=== PATIENT | female | born 1965 | race Caucasian/White ===

== ENCOUNTER → 2016-12-21 | Outpatient (CLI) | payer BC ==
--- NOTE | 2016-12-21 10:37 | WWHP ---
[facility] - HISTORY AND PHYSICAL DATE OF SERVICE: 12/21/2016 CHIEF COMPLAINT: The patient is here for her routine gynecologic exam and mammogram. HPI: This is a 51-year-old, G2, P2, with an LMP of 2009. She previously saw Dr. Winston for her gynecologic care and last was seen for this in 2012. She is without gynecologic complaints and denies any postmenopausal bleeding. PAST MEDICAL HISTORY: Asthma and right breast lobular CIS in 2005, which did not require any adjuvant treatment. MEDICATIONS: 1. Tudorza inhaler 1 puff b.i.d. 2. Ventolin inhaler 2 puffs q.i.d. ALLERGIES: SULFA which caused hives. PAST SURGICAL HISTORY: Right breast biopsy 2005 and laparoscopic cholecystectomy in the past. PAST OB HISTORY: Two vaginal deliveries. PAST GLOBAL RECRUITER HISTORY: She has been menopausal since 2009 and has no history of STDs. SOCIAL HISTORY: She admits to smoking 1 pack of cigarettes per day and has about 2 alcoholic drinks per month. She denies drug use. She has been since 2010. 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 FAMILY HISTORY: Father and brother had diabetes. Mother had an ID, COPD and CHF. Maternal aunt had breast cancer. REVIEW OF SYSTEMS: She has lost about 14 pounds over the last 3 years and she does believe she is eating less. She denies respiratory, cardiac or GI problems. PHYSICAL EXAM: Blood pressure 126/84, height 5 feet 3 inches, weight 136 pounds, temperature 97.1, pulse 77. This is a well-developed, well-nourished, white female, who is alert and oriented x3, in no acute distress. HEENT is within normal limits. NECK: Supple without mass or thyromegaly. CHEST AND LUNGS: Clear to auscultation. HEART: Regular rate and rhythm. BREASTS: There is a slight defect at the inferior aspect of the right breast consistent with previous breast biopsy. There are no palpable masses or nipple discharge. Axillary exam is negative for adenopathy. Back negative for CVA tenderness. ABDOMEN: Soft, nontender, without palpable masses. PELVIC EXAM: External genitalia reveals mild atrophy without lesions. Cervix and vagina reveals mild atrophy. The cervix is multiparous. There is no evidence of prolapse. The uterus is mid position, nongravid size and nontender. There are no palpable adnexal masses or tenderness. Rectovaginal exam is negative for mass or tenderness and is negative for occult blood. EXTREMITIES: Nontender. IMPRESSION: 1. A 51-year-old menopausal female with normal gynecologic exam. 2. History of right breast CIS in 2005 with no evidence of recurrence. PLAN: 1. The Pap smear was performed. 2. Self breast examination was discussed. 3. Diagnostic mammogram will be done today. 4. Osteoporosis prevention was discussed. 5. I have recommended screening colonoscopy based on her age and she states she will do this through Dr. Duenas. 6. She will return in 1 year end. MMODL / IJN: [id number] /
--- NOTE | 2016-12-21 10:53 | MM ---
Reason for exam: additional evaluation requested from prior study. Last mammogram was performed 2 years and 5 months ago. History: Patient is postmenopausal, has history of breast cancer at age 39, and has history of high-risk lesion on a previous biopsy at age 39. Family history of premenopausal breast cancer in maternal aunt at age 50. Benign US left CoreBiopsy of both breasts, March 24, 2007. High risk right mammotome panel of the right breast, May 03, 2005. Took hormonal contraceptives for 3 years beginning at age 17. Physical Findings: Nurse did not find any significant physical abnormalities on exam. MG Diagnostic Mammo w CAD ORACIO Bilateral CC and MLO view(s) were taken. Prior study comparison: July 09, 2014, bilateral MG diagnostic mammo w CAD ORACIO. September 05, 2012, CAD bilateral diagnostic mammogram. The breast tissue is heterogeneously dense. This may lower the sensitivity of mammography. Finding: There is a vague increasing high density, indistinct irregular mass in the outer quadrant, middle position of the left breast seen on CC view. New finding since July 09, 2014 and September 05, 2012. These results were verbally communicated with the patient and result sheet given to the patient on 12/21/16. ASSESSMENT: Incomplete: need additional imaging evaluation, BI-RAD 0 RECOMMENDATION: Ultrasound of the left breast.
--- NOTE | 2016-12-21 10:54 | USB ---
Reason for exam: additional evaluation requested from abnormal screening. History: Patient is postmenopausal, has history of breast cancer at age 39, and has history of high-risk lesion on a previous biopsy at age 39. Family history of premenopausal breast cancer in maternal aunt at age 50. Benign US left CoreBiopsy of both breasts, March 24, 2007. High risk right mammotome panel of the right breast, May 03, 2005. Took hormonal contraceptives for 3 years beginning at age 17. US Breast Limited LT Left breast ultrasound demonstrates no cystic or solid lesion seen. These results were verbally communicated with the patient and result sheet given to the patient on 12/21/16. ASSESSMENT: Negative, BI-RAD 1 RECOMMENDATION: Follow-up diagnostic mammogram of the left breast in 6 months.
== END | disposition home or self-care (01) ==
LOC: WWCWWP 08:34
PROVIDERS: ATTEND Obstetrics & Gynecology
DX: Z08 Encounter for follow-up examination after completed treatment for malignant neoplasm (principal); Z85.3 Personal history of malignant neoplasm of breast; R92.8 Other abnormal and inconclusive findings on diagnostic imaging of breast
CPT/HCPCS: 76642; G0204

== ENCOUNTER 2018-04-03 16:28 | Emergency (ER) | payer BC ==
[2018-04-03 17:13] LABS: Basophils % (A) 1 %; Eosinophils # (A) 0.2 k/uL (0-0.7); Eosinophils % (A) 3 %; HCT 47.5 % (34.0-46.0); HGB 15.9 gm/dL (11.4-16.0); Lymphocytes # (A) 2.7 k/uL (1.0-4.8); Lymphocytes % (A) 45 %; MCH 30.7 pg (25.0-35.0); MCHC 33.5 g/dL (31.0-37.0); MCV 91.8 fL (80.0-100.0); Mean Platelet Volume 7.4; Monocytes # (A) 0.3 k/uL (0-1.0); Monocytes % (A) 4 %; Neutrophils # (A) 2.7 k/uL (1.3-7.7); Neutrophils % (A) 44 %; Platelet Count 222 k/uL (150-450); RBC 5.17 m/uL (3.80-5.40); RDW 13.2 % (11.5-15.5)
[2018-04-03] MEDS ORDERED: IPRATROPIUM-ALBUTEROL 3 ML NEB INHALATION STA (17:28)
[2018-04-03 17:29] LABS: Creatine Kinase 60 U/L (30-135)
[2018-04-03] MEDS ORDERED: methylPREDNISolone SOD SUCCI 125 MG/2 ML VIAL IV STA (17:29)
[2018-04-03] MEDS ORDERED: FAMOTIDINE 20 MG/2 ML VIAL IV STA (17:29)
[2018-04-03] MEDS ORDERED: diphenhydrAMINE 50 MG/ML 1 ML VIAL IVP STA (17:29)
[2018-04-03 17:31] LABS: ALT 33 U/L (9-52); AST 34 U/L (14-36); Albumin 4.2 g/dL (3.5-5.0); Alkaline Phosphatase 87 U/L (38-126); Anion Gap 6 mmol/L; Blood Urea Nitrogen 8 mg/dL (7-17); Calcium 9.3 mg/dL (8.4-10.2); Carbon Dioxide 26 mmol/L (22-30); Chloride 106 mmol/L (98-107); Glucose 120 mg/dL (74-99); Potassium 4.3 mmol/L (3.5-5.1); Sodium 138 mmol/L (137-145); Total Bilirubin 0.5 mg/dL (0.2-1.3)
--- NOTE | 2018-04-03 17:33 | ED ---
General Adult HPI - General Chief complaint: Shortness of Breath Stated complaint: Sob Time Seen by Provider: 04/03/18 16:56 Source: patient, family, RN notes reviewed Mode of arrival: ambulatory Limitations: no limitations - History of Present Illness Initial comments: Patient is a pleasant 52-year-old female presenting to the emergency Department with complaints of rash and difficulty breathing. Onset of symptoms was around 4:00. Patient states she noticed the rash and then noticed some swelling, mostly in her hands however her arms as well. No history of similar symptoms previously. Patient also feels short of breath and has noticed some wheezing. Patient is a smoker. No new exposure to cosmetics or food or medication. No history of similar symptoms previously. Patient did return from a plane ride just a few days ago. Patient states rash is not painful or pruritic. No fevers. - Related Data Home Medications Medication Instructions Recorded Confirmed Albuterol Inhaler [Ventolin Hfa 2 puff INHALATION RT-QID 04/03/18 04/03/18 Inhaler] Cephalexin [Keflex] 500 mg PO TID 04/03/18 04/03/18 Cold Medication (Unknown) 2 tab PO BID 04/03/18 Fluticasone/Umeclidin/Vilanter 1 puff INHALATION RT-DAILY 04/03/18 04/03/18 [Trelegy Ellipta 100-62.5-25] Ibuprofen [Advil] 600 mg PO DAILY 04/03/18 04/03/18 Previous Rx's Medication Instructions Recorded Albuterol Inhaler [Ventolin Hfa 2 puff INHALATION Q4HR PRN #1 04/03/18 Inhaler] inhaler predniSONE 20 mg PO BID #10 tab 04/03/18 Allergies Allergy/AdvReac Type Severity Reaction Status Date / Time Sulfa (Sulfonamide Allergy Rash/Hives Verified 04/03/18 17:18 Antibiotics) Review of Systems ROS Statement: Those systems with pertinent positive or pertinent negative responses have been documented in the HPI. ROS Other: All systems not noted in ROS Statement are negative. Constitutional: Denies: fever Eyes: Denies: eye pain ENT: Denies: ear pain Respiratory: Reports: dyspnea. Denies: cough Cardiovascular: Denies: chest pain Endocrine: Denies: fatigue Gastrointestinal: Denies: abdominal pain Genitourinary: Denies: dysuria Musculoskeletal: Denies: back pain Skin: Reports: rash Neurological: Denies: weakness Past Medical History Past Medical History: No Reported History History of Any Multi-Drug Resistant Organisms: None Reported Past Surgical History: Cholecystectomy Past Psychological History: No Psychological Hx Reported Smoking Status: Current every day smoker Past Alcohol Use History: None Reported Past Drug Use History: None Reported General Exam Limitations: no limitations General appearance: alert, in no apparent distress Head exam: Present: atraumatic Eye exam: Present: normal appearance, PERRL, EOMI ENT exam: Present: normal oropharynx Neck exam: Present: normal inspection Respiratory exam: Present: wheezes Cardiovascular Exam: Present: regular rate, normal rhythm Expanded Peripheral pulses: 2+: Radial (R), Radial (L), Dorsalis Pedis (R), Dorsalis Pedis (L) GI/Abdominal exam: Present: soft. Absent: tenderness Extremities exam: Present: normal inspection. Absent: pedal edema, calf tenderness Back exam: Present: normal inspection Neurological exam: Present: alert Psychiatric exam: Present: normal affect, normal mood Skin exam: Present: rash (Patient does have diffuse rash mostly involving her arms and back. This is erythematous with rare urticarial appearance.) Course Vital Signs 04/03/18 04/03/18 04/03/18 16:36 17:38 17:47 Temperature 97.6 F Pulse Rate 117 H 110 H 110 H Respiratory 24 Rate Blood Pressure 157/83 O2 Sat by Pulse 93 L Oximetry EKG Findings - EKG Comments: EKG Findings:: Normal sinus rhythm at 90. AR 124. QRS 84. QT 378. QTC 462. Right axis. Normal QRS. No acute ST change. Medical Decision Making - Medical Decision Making Patient reevaluated and feeling much better. Patient denies any dyspnea at this time. Rash has resolved. Lung sounds still with some mild wheezing. Patient is comfortable with discharge home. Patient and family updated on results and need for follow-up. - Lab Data Result diagrams: 04/03/18 17:01 04/03/18 17:01 Lab Results 04/03/18 04/03/18 04/03/18 Range/Units 17:01 17:01 17:01 WBC 6.0 (3.8-10.6) k/uL RBC 5.17 (3.80-5.40) m/uL Hgb 15.9 (11.4-16.0) gm/dL Hct 47.5 H (34.0-46.0) % MCV 91.8 (80.0-100.0) fL MCH 30.7 (25.0-35.0) pg MCHC 33.5 (31.0-37.0) g/dL RDW 13.2 (11.5-15.5) % Plt Count 222 (150-450) k/uL Neutrophils % 44 % Lymphocytes % 45 % Monocytes % 4 % Eosinophils % 3 % Basophils % 1 % Neutrophils # 2.7 (1.3-7.7) k/uL Lymphocytes # 2.7 (1.0-4.8) k/uL Monocytes # 0.3 (0-1.0) k/uL Eosinophils # 0.2 (0-0.7) k/uL Basophils # 0.0 (0-0.2) k/uL Sodium 138 (137-145) mmol/L Potassium 4.3 (3.5-5.1) mmol/L Chloride 106 (98-107) mmol/L Carbon Dioxide 26 (22-30) mmol/L Anion Gap 6 mmol/L BUN 8 (7-17) mg/dL Creatinine 0.61 (0.52-1.04) mg/dL Est GFR (CKD-EPI)AfAm >90 (>60 ml/min/1.73 sqM) Est GFR (CKD-EPI)NonAf >90 (>60 ml/min/1.73 sqM) Glucose 120 H (74-99) mg/dL Calcium 9.3 (8.4-10.2) mg/dL Total Bilirubin 0.5 (0.2-1.3) mg/dL AST 34 (14-36) U/L ALT 33 (9-52) U/L Alkaline Phosphatase 87 (38-126) U/L Total Creatine Kinase 60 (30-135) U/L CK-MB (CK-2) 0.8 (0.0-2.4) ng/mL CK-MB (CK-2) Rel Index 1.3 Troponin I <0.012 (0.000-0.034) ng/mL Total Protein 7.0 (6.3-8.2) g/dL Albumin 4.2 (3.5-5.0) g/dL - Radiology Data Radiology results: report reviewed (Computed tomography scan of the chest negative for pulmonary embolism. Changes are consistent with COPD.) Disposition Clinical Impression: Bronchospasm Disposition: HOME SELF-CARE Condition: Stable Instructions: Allergies (ED), COPD (Chronic Obstructive Pulmonary Disease) (ED) Additional Instructions: Continue [id number] antihistamine such as Benadryl or Claritin for the next 5 days. Please follow-up with primary care physician in the next couple days for recheck. Return for difficulty breathing, increased rash, swelling of the face or tongue or throat, worsening symptoms or other concerns. Prescriptions: Albuterol Inhaler [Ventolin Hfa Inhaler] 2 puff INHALATION Q4HR PRN #1 inhaler PRN Reason: Dyspnea predniSONE 20 mg PO BID #10 tab Is patient prescribed a controlled substance at d/c from ED?: No Referrals: Jw Duenas MD [Primary Care Provider] - 1-2 days Time of Disposition: 19:12
[2018-04-03 17:41] LABS: Troponin I <0.012 ng/mL (0.000-0.034)
[2018-04-03 17:47] LABS: Creatine Kinase MB 0.8 ng/mL (0.0-2.4)
--- NOTE | 2018-04-03 18:30 | CT ---
EXAMINATION TYPE: CT angio chest DATE OF EXAM: 04/03/2018 COMPARISON: Chest x-ray April 06, 2013. HISTORY: Shortness of breath rule out pulmonary embolism CT DLP: 20.7 mGycm. Automated Exposure Control for Dose Reduction was Utilized. CONTRAST: CTA scan of the thorax is performed with IV Contrast, patient injected with 100 mL of Isovue 370, pul monary embolism protocol. MIP Images are created on CT scanner and reviewed. FINDINGS: LUNGS: Moderate underlying emphysematous change is present most prominent in lung apices. No suspicio us consolidation or groundglass opacity is seen. No pleural effusion or pneumothorax is noted. No con cerning parenchymal nodules or masses are identified. MEDIASTINUM: There is satisfactory enhancement of the pulmonary artery and its branches, there is no CT evidence for pulmonary embolism. There is abnormal confluent soft tissue density subcarinal regio n extending into bilateral hilar regions could reflect confluent adenopathy as there is loss of mary l low dense fat. No cardiomegaly or pericardial effusion is seen. OTHER: Cholecystectomy clips are noted. Mild to moderate multilevel spurring in the mid to lower thor acic spine is seen. IMPRESSION: 1. No CT evidence for acute pulmonary embolism. 2. Moderate underlying emphysematous change without acute pulmonary process.
[2018-04-03 19:19] VITALS: BP 134/77; PULSE 94; RESP 20; TEMP 98
== END 2018-04-03 19:19 | disposition home or self-care (01) ==
LOC: EC 16:28
DX: J98.01 Acute bronchospasm (principal); R21 Rash and other nonspecific skin eruption; F17.200 Nicotine dependence, unspecified, uncomplicated; Z79.1 Long term (current) use of non-steroidal anti-inflammatories (NSAID); Z79.899 Other long term (current) drug therapy; Z79.51 Long term (current) use of inhaled steroids; Z88.2 Allergy status to sulfonamides
CPT/HCPCS: 36415; 94640; 93005; 80053; 82550; 82553; 84484; 85025; 71275; 99285; 96374; 96375 ×2; J1200; J2930; Q9967

== ENCOUNTER 2018-04-19 15:14 | Emergency (ER) | payer BC ==
[2018-04-19] MEDS ORDERED: methylPREDNISolone SOD SUCCI 125 MG/2 ML VIAL IV STA (15:56)
[2018-04-19] MEDS ORDERED: FAMOTIDINE 20 MG/2 ML VIAL IV STA (15:56)
--- NOTE | 2018-04-19 17:13 | ED ---
Allergic Reaction HPI - General Chief complaint: Allergic Reaction Stated complaint: Poss allergic reaction-sob, swollen Time Seen by Provider: 04/19/18 15:45 Source: patient, RN notes reviewed, old records reviewed Mode of arrival: ambulatory Limitations: no limitations - History of Present Illness Initial Comments: This is a 52-year-old female the ER for evaluation of swelling and itching. Patient did take antibiotic today, Keflex for sore throat. Patient denies any shortness of breath, no wheezing no feelings of tongue swelling. No significant rash noted. Patient has had prior ALLERGIC reaction which this feels similar MD Complaint: allergic reaction -: minutes(s) Exposure: medication (Keflex) Symptoms: rash, itching, facial swelling, lip swelling Severity: mild Treatment Prior to Arrival: benadryl - Related Data Home Medications Medication Instructions Recorded Confirmed Albuterol Inhaler [Ventolin Hfa 2 puff INHALATION RT-QID 04/03/18 04/19/18 Inhaler] Fluticasone/Umeclidin/Vilanter 1 puff INHALATION RT-DAILY 04/03/18 04/19/18 [Trelegy Ellipta 100-62.5-25] Previous Rx's Medication Instructions Recorded Famotidine [Pepcid] 20 mg PO BID #28 tablet 04/19/18 predniSONE 50 mg PO DAILY #5 tab 04/19/18 Allergies Allergy/AdvReac Type Severity Reaction Status Date / Time cephalexin [From Keflex] Allergy Anaphylaxis Verified 04/19/18 17:06 Sulfa (Sulfonamide Allergy Rash/Hives Verified 04/19/18 17:06 Antibiotics) Review of Systems ROS Statement: Those systems with pertinent positive or pertinent negative responses have been documented in the HPI. ROS Other: All systems not noted in ROS Statement are negative. Past Medical History Past Medical History: No Reported History History of Any Multi-Drug Resistant Organisms: None Reported Past Surgical History: Cholecystectomy Past Psychological History: No Psychological Hx Reported Smoking Status: Current every day smoker Past Alcohol Use History: None Reported Past Drug Use History: None Reported General Exam Limitations: no limitations General appearance: alert, in no apparent distress Head exam: Present: atraumatic, normocephalic, normal inspection Eye exam: Present: normal appearance, PERRL, EOMI. Absent: scleral icterus, conjunctival injection, periorbital swelling ENT exam: Present: normal exam, mucous membranes moist Neck exam: Present: normal inspection. Absent: tenderness, meningismus, lymphadenopathy Respiratory exam: Present: normal lung sounds bilaterally. Absent: respiratory distress, wheezes, rales, rhonchi, stridor Cardiovascular Exam: Present: regular rate, normal rhythm, normal heart sounds. Absent: systolic murmur, diastolic murmur, rubs, gallop, clicks GI/Abdominal exam: Present: soft, normal bowel sounds. Absent: distended, tenderness, guarding, rebound, rigid Extremities exam: Present: normal inspection, full ROM, normal capillary refill. Absent: tenderness, pedal edema, joint swelling, calf tenderness Back exam: Present: normal inspection Neurological exam: Present: alert, oriented X3, CN II-XII intact Psychiatric exam: Present: normal affect, normal mood Skin exam: Present: warm, dry, intact, normal color. Absent: rash Course Vital Signs 04/19/18 04/19/18 04/19/18 15:16 15:52 17:02 Temperature 97.4 F L Pulse Rate 135 H 87 Respiratory 18 20 16 Rate Blood Pressure 164/70 116/73 O2 Sat by Pulse 94 L 95 Oximetry 04/19/18 17:34 Temperature 98.4 F Pulse Rate 94 Respiratory 18 Rate Blood Pressure 115/74 O2 Sat by Pulse 95 Oximetry Medical Decision Making - Medical Decision Making 52 female the ER with ALLERGIC reaction, patient encouraged to discontinue Keflex, treated on an outpatient basis with antihistamines, steroids. Patient' s in no acute distress no stridor, vital signs are normal and stable Disposition Clinical Impression: Allergic reaction, Adverse reaction to drug Disposition: HOME SELF-CARE Condition: Good Instructions (If sedation given, give patient instructions): Anaphylaxis (ED) Prescriptions: Famotidine [Pepcid] 20 mg PO BID #28 tablet predniSONE 50 mg PO DAILY #5 tab Is patient prescribed a controlled substance at d/c from ED?: No Referrals: Jw Duenas MD [Primary Care Provider] - 1-2 days
[2018-04-19 17:35] VITALS: BP 115/74; PULSE 94; RESP 18; TEMP 98.4
== END 2018-04-19 17:34 | disposition home or self-care (01) ==
LOC: EC 15:14
DX: L29.9 Pruritus, unspecified (principal); R22.0 Localized swelling, mass and lump, head; R21 Rash and other nonspecific skin eruption; T36.1X5A Adverse effect of cephalosporins and other beta-lactam antibiotics, initial encounter; F17.200 Nicotine dependence, unspecified, uncomplicated; Z79.51 Long term (current) use of inhaled steroids; Z79.899 Other long term (current) drug therapy; Z88.1 Allergy status to other antibiotic agents; Z88.2 Allergy status to sulfonamides
CPT/HCPCS: 99284; 96374; 96375; J2930

== ENCOUNTER 2018-07-20 07:27 | Observation (INO) | payer BC ==
[2018-07-20] MEDS ORDERED: methylPREDNISolone SOD SUCCI 125 MG/2 ML VIAL IV STA (07:41)
[2018-07-20] MEDS ORDERED: IPRATROPIUM-ALBUTEROL 3 ML NEB INHALATION STA (07:41)
[2018-07-20] MEDS ORDERED: SODIUM CHLORIDE 0.9% 500 ML 500 ML IV STA (07:41)
--- NOTE | 2018-07-20 07:46 | ED ---
SOB HPI - General Source: patient, RN notes reviewed Mode of arrival: ambulatory Limitations: no limitations <Perez Brunson - Last Filed: 07/20/18 09:26> <Jeovany Weinstein - Last Filed: 07/20/18 09:36> - General Chief Complaint: Shortness of Breath Stated Complaint: SOB Time Seen by Provider: 07/20/18 07:34 - History of Present Illness Initial Comments: This a 52-year-old female presents emergency Department with chief complaint shortness of breath. Patient states started on Tuesday. Patient has been on antibiotics and steroids for last few days and did receive IM steroids yesterday at PCPs office. She's had no improvement she states she feels worse today. She does have underlying COPD and which she uses inhalers at home. She reports no fevers or chills. She has had mild URI symptoms. Sick contacts include her . Patient denies any current chest pain, leg swelling, nausea vomiting diarrhea constipation. (Perez Brunson) - Related Data Home Medications Medication Instructions Recorded Confirmed Albuterol Inhaler [Ventolin Hfa 2 puff INHALATION RT-QID 04/03/18 07/20/18 Inhaler] Fluticasone/Umeclidin/Vilanter 1 puff INHALATION RT-DAILY 04/03/18 07/20/18 [Trelegy Ellipta 100-62.5-25] Levofloxacin [Levaquin] 500 mg PO DAILY 07/20/18 07/20/18 methylPREDNISolone Dose Pack See Taper PO DIRECTED 07/20/18 07/20/18 [Medrol Dose Pack] Allergies Allergy/AdvReac Type Severity Reaction Status Date / Time cephalexin [From Keflex] Allergy Anaphylaxis Verified 07/20/18 08:42 Sulfa (Sulfonamide Allergy Rash/Hives Verified 07/20/18 08:42 Antibiotics) Review of Systems ROS Other: All systems not noted in ROS Statement are negative. <Perez Brunson - Last Filed: 07/20/18 09:26> ROS Other: All systems not noted in ROS Statement are negative. <Jeovany Weinstein - Last Filed: 07/20/18 09:36> ROS Statement: Those systems with pertinent positive or pertinent negative responses have been documented in the HPI. Past Medical History Past Medical History: COPD History of Any Multi-Drug Resistant Organisms: None Reported Past Surgical History: Cholecystectomy Past Psychological History: No Psychological Hx Reported Smoking Status: Current every day smoker Past Alcohol Use History: None Reported Past Drug Use History: None Reported <Peerz Brunson - Last Filed: 07/20/18 09:26> General Exam Limitations: no limitations General appearance: alert, in no apparent distress Head exam: Present: atraumatic, normocephalic, normal inspection Eye exam: Present: normal appearance, PERRL, EOMI. Absent: scleral icterus, conjunctival injection, periorbital swelling ENT exam: Present: normal exam, normal oropharynx, mucous membranes moist, TM's normal bilaterally Neck exam: Present: normal inspection. Absent: tenderness, meningismus, lymphadenopathy Respiratory exam: Present: wheezes, decreased breath sounds. Absent: normal lung sounds bilaterally, respiratory distress, rales, rhonchi, stridor Cardiovascular Exam: Present: normal rhythm, tachycardia, normal heart sounds. Absent: systolic murmur, diastolic murmur, rubs, gallop, clicks GI/Abdominal exam: Present: soft, normal bowel sounds. Absent: distended, tenderness, guarding, rebound, rigid Neurological exam: Present: alert, oriented X3 Skin exam: Present: warm, dry, intact, normal color. Absent: rash <Perez Brunson - Last Filed: 07/20/18 09:26> Course Vital Signs 07/20/18 07/20/18 07/20/18 07:29 07:50 08:07 Temperature 97.5 F L Pulse Rate 102 H 80 80 Respiratory 20 Rate Blood Pressure 175/102 O2 Sat by Pulse 93 L Oximetry 07/20/18 08:51 Temperature Pulse Rate 78 Respiratory 24 Rate Blood Pressure 168/89 O2 Sat by Pulse 97 Oximetry Medical Decision Making - Lab Data Result diagrams: 07/20/18 07:55 07/20/18 07:55 <Perez Brunson - Last Filed: 07/20/18 09:26> - Lab Data Result diagrams: 07/20/18 07:55 07/20/18 07:55 <Jeovany Weinstein - Last Filed: 07/20/18 09:36> - Medical Decision Making 52-year-old female sent for cough congestion chest x-ray reviewed no acute abnormality. Laboratory unremarkable. Patient be admitted for fell outpatient COPD exacerbation. Patient will be admitted on IV Solu-Medrol every 6 hours. (Perez Brunson) Case was discussed with practitioner breezy, chart and results reviewed. Case was also discussed with Dr. Teague, who will admit covering for Dr. Yonis galeano. (Jeovany Weinstein) - Lab Data Lab Results 07/20/18 07/20/18 07/20/18 Range/Units 07:55 07:55 07:55 WBC 6.9 (3.8-10.6) k/uL RBC 5.06 (3.80-5.40) m/uL Hgb 15.4 (11.4-16.0) gm/dL Hct 46.8 H (34.0-46.0) % MCV 92.5 (80.0-100.0) fL MCH 30.4 (25.0-35.0) pg MCHC 32.9 (31.0-37.0) g/dL RDW 13.5 (11.5-15.5) % Plt Count 211 (150-450) k/uL Neutrophils % 60 % Lymphocytes % 27 % Monocytes % 8 % Eosinophils % 1 % Basophils % 0 % Neutrophils # 4.2 (1.3-7.7) k/uL Lymphocytes # 1.9 (1.0-4.8) k/uL Monocytes # 0.5 (0-1.0) k/uL Eosinophils # 0.1 (0-0.7) k/uL Basophils # 0.0 (0-0.2) k/uL Sodium 138 (137-145) mmol/L Potassium 4.1 (3.5-5.1) mmol/L Chloride 104 (98-107) mmol/L Carbon Dioxide 23 (22-30) mmol/L Anion Gap 11 mmol/L BUN 9 (7-17) mg/dL Creatinine 0.63 (0.52-1.04) mg/dL Est GFR (CKD-EPI)AfAm >90 (>60 ml/min/1.73 sqM) Est GFR (CKD-EPI)NonAf >90 (>60 ml/min/1.73 sqM) Glucose 98 (74-99) mg/dL Calcium 9.3 (8.4-10.2) mg/dL Magnesium 1.7 (1.6-2.3) mg/dL Total Bilirubin 0.4 (0.2-1.3) mg/dL AST 31 (14-36) U/L ALT 32 (9-52) U/L Alkaline Phosphatase 73 (38-126) U/L Troponin I (0.000-0.034) ng/mL NT-Pro-B Natriuret Pep 89 pg/mL Total Protein 7.0 (6.3-8.2) g/dL Albumin 4.3 (3.5-5.0) g/dL 07/20/18 Range/Units 07:55 WBC (3.8-10.6) k/uL RBC (3.80-5.40) m/uL Hgb (11.4-16.0) gm/dL Hct (34.0-46.0) % MCV (80.0-100.0) fL MCH (25.0-35.0) pg MCHC (31.0-37.0) g/dL RDW (11.5-15.5) % Plt Count (150-450) k/uL Neutrophils % % Lymphocytes % % Monocytes % % Eosinophils % % Basophils % % Neutrophils # (1.3-7.7) k/uL Lymphocytes # (1.0-4.8) k/uL Monocytes # (0-1.0) k/uL Eosinophils # (0-0.7) k/uL Basophils # (0-0.2) k/uL Sodium (137-145) mmol/L Potassium (3.5-5.1) mmol/L Chloride (98-107) mmol/L Carbon Dioxide (22-30) mmol/L Anion Gap mmol/L BUN (7-17) mg/dL Creatinine (0.52-1.04) mg/dL Est GFR (CKD-EPI)AfAm (>60 ml/min/1.73 sqM) Est GFR (CKD-EPI)NonAf (>60 ml/min/1.73 sqM) Glucose (74-99) mg/dL Calcium (8.4-10.2) mg/dL Magnesium (1.6-2.3) mg/dL Total Bilirubin (0.2-1.3) mg/dL AST (14-36) U/L ALT (9-52) U/L Alkaline Phosphatase (38-126) U/L Troponin I <0.012 (0.000-0.034) ng/mL NT-Pro-B Natriuret Pep pg/mL Total Protein (6.3-8.2) g/dL Albumin (3.5-5.0) g/dL Disposition <Perez Brunson - Last Filed: 07/20/18 09:26> <Jeovany Weinstein - Last Filed: 07/20/18 09:36> Clinical Impression: COPD exacerbation, Failure of outpatient treatment Disposition: ADMITTED IP TO THIS HOSP Condition: Stable Referrals: Jw Duenas MD [Primary Care Provider] - 1-2 days
[2018-07-20 08:23] LABS: Basophils % (A) 0 %; Eosinophils # (A) 0.1 k/uL (0-0.7); Eosinophils % (A) 1 %; HCT 46.8 % (34.0-46.0); HGB 15.4 gm/dL (11.4-16.0); Lymphocytes # (A) 1.9 k/uL (1.0-4.8); Lymphocytes % (A) 27 %; MCH 30.4 pg (25.0-35.0); MCHC 32.9 g/dL (31.0-37.0); MCV 92.5 fL (80.0-100.0); Mean Platelet Volume 7.6; Monocytes # (A) 0.5 k/uL (0-1.0); Monocytes % (A) 8 %; Neutrophils # (A) 4.2 k/uL (1.3-7.7); Neutrophils % (A) 60 %; Platelet Count 211 k/uL (150-450); RBC 5.06 m/uL (3.80-5.40); RDW 13.5 % (11.5-15.5); WBC 6.9 k/uL (3.8-10.6)
[2018-07-20 08:33] LABS: ALT 32 U/L (9-52); AST 31 U/L (14-36); Albumin 4.3 g/dL (3.5-5.0); Alkaline Phosphatase 73 U/L (38-126); Anion Gap 11 mmol/L; Blood Urea Nitrogen 9 mg/dL (7-17); Calcium 9.3 mg/dL (8.4-10.2); Carbon Dioxide 23 mmol/L (22-30); Chloride 104 mmol/L (98-107); Glucose 98 mg/dL (74-99); Magnesium 1.7 mg/dL (1.6-2.3); Potassium 4.1 mmol/L (3.5-5.1); Sodium 138 mmol/L (137-145); Total Bilirubin 0.4 mg/dL (0.2-1.3)
--- NOTE | 2018-07-20 08:49 | XR ---
EXAMINATION TYPE: XR chest 2V DATE OF EXAM: 07/20/2018 COMPARISON: Prior chest x-ray 04/06/2013 HISTORY: Difficulty breathing TECHNIQUE: Frontal and lateral views of the chest are obtained. FINDINGS: Hyperinflation suggests underlying COPD. There are overlying cardiac leads and the patient is rotated. There is no focal air space opacity, pleural effusion, or pneumothorax seen. The cardia c silhouette size is stable. There is eventration of the right hemidiaphragm. Surgical clips in the upper abdomen. The osseous structures are intact. IMPRESSION: No acute cardiopulmonary process.
--- NOTE | 2018-07-20 11:35 | P.HPIM ---
History of Present Illness This is a pleasant 52 years old female with past medical history of pneumonia, bronchitis,. She is a patient of Dr. Mobley . Patient states that her has the flu/comment called for about 2 weeks, and about 5 days ago she started having her respiratory symptoms mainly of shortness of breath. However patient denies chest pain or coughing. She first treated herself with uxom-mcc-aizreyn stuff and then went to see her PCP who prescribed her steroids and antibiotics. With no improvement she gets one extra shot of steroids and then came to emergency room neck a for worsening dyspnea. Patient denies change in urine or bowel habits. However she had generalized weakness. Also she had generalized myalgia and arthralgia earlier during the week which is resolved now. Patient denies history of COPD. However she says that she had asthma about 10 years ago. She is currently smoking about 10 cigarettes per day. No alcohol or illicit tracts On admission patient is afebrile, rest of Vitas looks stable, she is saturating 94% on 2 L. CBC and BMP were unremarkable. Liver enzymes not elevated. Troponin is negative. Chest x-ray showing no acute pulmonary process. EKG: Normal sinus rhythm at 82 Review of Systems CONSTITUTIONAL: No fever, no malaise, no fatigue. HEENT: No recent visual problems or hearing problems. Denied any sore throat. CARDIOVASCULAR: No orthopnea, PND, no palpitations, no syncope. PULMONARY: No shortness of breath, no cough, no hemoptysis. GASTROINTESTINAL: No diarrhea, no nausea, no vomiting, no abdominal pain. Normoactive bowel sounds. NEUROLOGICAL: No headaches, no weakness, no numbness. HEMATOLOGICAL: Denies any bleeding or petechiae. GENITOURINARY: Denies any burning micturition, frequency, or urgency. MUSCULOSKELETAL/RHEUMATOLOGICAL: Denies any joint pain, swelling, or any muscle pain. ENDOCRINE: Denies any polyuria or polydipsia. Past Medical History Past Medical History: Pneumonia Additional Past Medical History / Comment(s): Bronchitis, seasonal allergies, sinus problems, UTI. History of Any Multi-Drug Resistant Organisms: None Reported Past Surgical History: Breast Surgery, Cholecystectomy Additional Past Surgical History / Comment(s): L breast benign bx. Past Anesthesia/Blood Transfusion Reactions: No Reported Reaction, Motion Sickness Smoking Status: Current every day smoker - Past Family History Father Family Medical History: CVA/TIA Additional Family Medical History / Comment(s): Father for a CVA at the age of 46yrs. Mother Family Medical History: COPD Additional Family Medical History / Comment(s): Mother had heart "issues". She from COPD at the age of 72 yrs. She was a smoker. Medications and Allergies Home Medications Medication Instructions Recorded Confirmed Type Albuterol Inhaler [Ventolin Hfa 2 puff INHALATION RT-QID 04/03/18 07/20/18 History Inhaler] Fluticasone/Umeclidin/Vilanter 1 puff INHALATION RT-DAILY 04/03/18 07/20/18 History [Trelegy Ellipta 100-62.5-25] Levofloxacin [Levaquin] 500 mg PO DAILY 07/20/18 07/20/18 History methylPREDNISolone Dose Pack See Taper PO DIRECTED 07/20/18 07/20/18 History [Medrol Dose Pack] Allergies Allergy/AdvReac Type Severity Reaction Status Date / Time cephalexin [From Keflex] Allergy Anaphylaxis Verified 07/20/18 08:42 Sulfa (Sulfonamide Allergy Rash/Hives Verified 07/20/18 08:42 Antibiotics) Physical Exam Vitals: Vital Signs Temp Pulse Pulse Resp BP BP Pulse Ox 07/20/18 10:58 97.4 F L 71 20 150/82 94 L 07/20/18 10:00 97.7 F 112 H 24 157/79 96 07/20/18 08:51 78 24 168/89 97 07/20/18 08:07 80 07/20/18 07:50 80 07/20/18 07:29 97.5 F L 102 H 20 175/102 93 L Intake and Output 07/19/18 07/20/18 07/20/18 22:59 06:59 14:59 Other: Weight 57.606 kg GENERAL: The patient is alert and oriented x3, not in any acute distress. Well developed, well nourished. HEENT: Pupils are round and equally reacting to light. EOMI. No scleral icterus. No conjunctival pallor. Normocephalic, atraumatic. No pharyngeal erythema. No thyromegaly. CARDIOVASCULAR: S1 and S2 present. No murmurs, rubs, or gallops. PULMONARY: Chest is clear to auscultation, no wheezing or crackles. ABDOMEN: Soft, nontender, nondistended, normoactive bowel sounds. No palpable organomegaly. MUSCULOSKELETAL: No joint swelling or deformity. EXTREMITIES: No cyanosis, clubbing, or pedal edema. NEUROLOGICAL: Gross neurological examination did not reveal any focal deficits. SKIN: No rashes. Results CBC & Chem 7: 07/20/18 07:55 07/20/18 07:55 Labs: Abnormal Lab Results - Last 24 Hours (Table) 07/20/18 Range/Units 07:55 Hct 46.8 H (34.0-46.0) % Thrombosis Risk Factor Assmnt - Choose All That Apply Any of the Below Risk Factors Present?: Yes Each Factor Represents 1 point: Abnormal pulmonary function (COPD), Age 41-60 years Other Risk Factors: No Other congenital or acquired thrombophilia - If yes, enter type in comment: No Thrombosis Risk Factor Assessment Total Risk Factor Score: 2 Thrombosis Risk Factor Assessment Level: Low Risk Assessment and Plan Assessment: Possible upper respiratory viral infection versus acute tracheobronchitis. Rule out influenza Nicotine dependence Remote history of asthma Plan: This is a pleasant 52 years old female who presents with dyspnea. Chest x-ray was negative. We'll check for influenza. Continue with present treatment and oxygen therapy as needed. pulmonary consult. Labs and medication were reviewed.. Continue same treatment. Continue with symptomatic treatment. Resume home medication. Monitor lytes and vitals. DVT and GI prophylaxis. Further recommendations of the clinical course of the patient DVT prophylaxis: Subcutaneous heparin GI Prophylaxis: Pepcid
[2018-07-20 11:47] LABS: Glucose,Whole Blood 137 mg/dL (75-99)
[2018-07-20] MEDS: IPRATROPIUM-ALBUTEROL 3 ML NEB INHALATION PRN ×3 (12:21→19:58)
[2018-07-20] MEDS: methylPREDNISolone SOD SUCCI 125 MG/2 ML VIAL IV SCH ×3 (12:21→23:18)
[2018-07-20] MEDS: INSULIN ASPART (NovoLOG) 100 UNIT/ML VIAL SQ SCH ×3 (12:24→20:49)
--- NOTE | 2018-07-20 14:28 | P.DS ---
Providers Date of admission: 07/20/18 09:27 Attending physician: Chela Sorensen Consults: 07/20/18 11:32 Consult Physician Urgent Consulting Provider: Earnset Bonilla Consult Reason/Comments: dyspnea Do you want consulting provider notified?: Yes Primary care physician: Henrique Escalera [facility] Course: 56-year-old admitted the for alcohol withdrawals patient does have advanced alcoholic cirrhosis although doesn't have any significant ascites. Patient is still having withdrawals. Patient is quite weak may require placement in subacute rehabilitation patient is requiring Ativan often. Patient has some gum bleeding because of which I'll order IV vitamin K oral vitamin K did not help her INR. I did order IV vitamin K yesterday which was switched to oral by pharmacy. Patient does have chronic encephalopathy and baseline confusion secondary to that. Does not have any other symptoms of Wernicke's encephalopathy. 07/20/2018 Patient is doing better today did not require any Ativan for alcohol withdrawal. Patient's INR did not improve in spite of from IV vitamin K. Patient mental status improved presently appears to be baseline appears to have chronic encephalopathy from alcoholism. I do not expect her mental status to improve better than what it is right now. Her overall prognosis is extremely poor. Physical therapy is requiring subacute rehab because of the social, insurance issues placement in subacute rehabilitation may not happen because of that reason case management and social work is evaluating for home with home care at [facility]. Please refer to the documentation. Patient is medically stable to be discharged if social issues can be addressed. Patient's overall prognosis is extremely poor and high risk for readmission. Patient appears to have advanced cirrhosis. His IV fluids at this can urine patient appears to have some ascites will confirm the amount of ascites with an ultrasound although patient does not have any fluid thrill has minimal shifting dullness. Abdomen is still soft and patient will be discharged on Aldactone and the Lasix. PHYSICAL EXAMINATION: GENERAL: The patient is alert and oriented x3, not in any acute distress. Thin built no more gum bleeding or alcohol withdrawal HEENT: Pupils are round and equally reacting to light. EOMI. does have scleral icterus. No conjunctival pallor. Normocephalic, atraumatic. No pharyngeal e rythema. No thyromegaly. CARDIOVASCULAR: S1 and S2 present. No murmurs, rubs, or gallops. PULMONARY: Chest is clear to auscultation, no wheezing or crackles. ABDOMEN: Does have peripheral signs of cirrhosis with some shifting dullness and ascites MUSCULOSKELETAL: No joint swelling or deformity. EXTREMITIES: No cyanosis, clubbing, or pedal edema. NEUROLOGICAL: Gross neurological examination did not reveal any focal deficits. SKIN: No rashes. Assessment and Plan Plan: -Acute alcoholic gastritis: Improved now -Alcohol withdrawal improved not requiring any Ativan -Coagulopathy with INR of 1.9 seconded to cirrhosis -Alcoholic cirrhosis it appeared to be advanced and very poor prognosis, does have ascites no IV fluids were discontinued as mentioned above -Hyponatremia -Pancytopenia secondary to cirrhosis -Unconjugated hyperbilirubinemia secondary to cirrhosis -Generalized weakness and gait instability secondary to alcoholism patient appears to have chronic encephalopathy but does not appear to have Wernicke's encephalopathy -Chronic encephalopathy from alcoholism Patient Condition at Discharge: Stable Plan - Discharge Summary Discharge Rx Participant: No New Discharge Prescriptions: No Action Fluticasone/Umeclidin/Vilanter [Trelegy Ellipta 100-62.5-25] 1 puff INHALATION RT-DAILY Albuterol Inhaler [Ventolin Hfa Inhaler] 2 puff INHALATION RT-QID methylPREDNISolone Dose Pack [Medrol Dose Pack] See Taper PO DIRECTED Levofloxacin [Levaquin] 500 mg PO DAILY Discharge Medication List Albuterol Inhaler [Ventolin Hfa Inhaler] 2 puff INHALATION RT-QID 04/03/18 [History] Fluticasone/Umeclidin/Vilanter [Trelegy Ellipta 100-62.5-25] 1 puff INHALATION RT-DAILY 04/03/18 [History] Levofloxacin [Levaquin] 500 mg PO DAILY 07/20/18 [History] methylPREDNISolone Dose Pack [Medrol Dose Pack] See Taper PO DIRECTED 07/20/18 [History] Follow up Appointment(s)/Referral(s): Jw Duenas MD [Primary Care Provider] - 1-2 days
[2018-07-20 16:22] VITALS: BMI 21.8
[2018-07-20 17:07] LABS: Glucose,Whole Blood 184 mg/dL (75-99)
[2018-07-20] MEDS: NICOTINE 21MG/24HR PATCH TRANSDERM SCH (17:28)
[2018-07-20 20:37] LABS: Glucose,Whole Blood 183 mg/dL (75-99)
[2018-07-20] MEDS: HEPARIN SODIUM,PORCINE 5,000 UNIT/ML 1 ML VIAL SQ SCH (20:49)
[2018-07-20] MEDS: FAMOTIDINE 20 MG TAB PO SCH (20:49)
[2018-07-20] MEDS ORDERED: FAMOTIDINE 20 MG/2 ML VIAL IV SCH (21:00)
[2018-07-21] MEDS: methylPREDNISolone SOD SUCCI 125 MG/2 ML VIAL IV SCH ×3 (05:59→17:14)
[2018-07-21] MEDS: IPRATROPIUM-ALBUTEROL 3 ML NEB INHALATION PRN ×4 (07:12→19:51)
[2018-07-21 07:16] LABS: Glucose,Whole Blood 120 mg/dL (75-99)
[2018-07-21] MEDS: INSULIN ASPART (NovoLOG) 100 UNIT/ML VIAL SQ SCH ×4 (07:20→20:53)
[2018-07-21] MEDS: FAMOTIDINE 20 MG TAB PO SCH ×2 (08:20→20:52)
[2018-07-21] MEDS: NICOTINE 21MG/24HR PATCH TRANSDERM SCH (08:20)
[2018-07-21] MEDS: HEPARIN SODIUM,PORCINE 5,000 UNIT/ML 1 ML VIAL SQ SCH ×2 (08:21→20:52)
[2018-07-21] MEDS ORDERED: NICOTINE 21MG/24HR PATCH TRANSDERM SCH (09:00)
[2018-07-21 11:51] LABS: Glucose,Whole Blood 139 mg/dL (75-99)
--- NOTE | 2018-07-21 14:56 | CONS ---
CONSULTATION PULMONARY CRITICAL CARE CONSULTATION: DATE OF SERVICE: 07/21/2018 This is a very pleasant 52-year-old female who sees Dr. Duenas. She apparently saw Dr. Duenas on Tuesday of this past week. She came in with shortness of breath, chest tightness, wheezing and cough. Anyway, she saw Dr. Duenas who gave her some steroids and some antibiotics. She was not feeling much better and went back on Tuesday. She received a steroid injection in the behind and apparently was told to continue with her Medrol Dosepak and her Levaquin. She apparently got worse and developed worsening shortness of breath, chest tightness, wheezing, cough, chest congestion and phlegm production. She thought she might be having an allergic reaction. For that reason, she went into the emergency room to be evaluated. She apparently was seen there, admitted with a diagnosis of COPD exacerbation. Currently, she is doing very well. She has been smoking for 40 years. She smokes about a pack a day. Her mother who I used to take care of also had COPD. She has passed since. Anyway, I told the patient she needs to stop smoking. I also told the patient that she needs to come see me so we can stage her chronic lung disease and better understand her physiology. HOME MEDICATIONS: Only include albuterol inhaler and Trelegy. This was given to her a while back from Dr. Duenas. More recently, she received a Medrol Dosepak and Levaquin 500 mg. ALLERGIES: Include KEFLEX and SULFA ANTIBIOTICS. MEDICAL HISTORY: Includes COPD. She has never seen a lung doctor for staging and never had PFTs. SURGICAL HISTORY: Includes cholecystectomy. SOCIAL HISTORY: Includes ongoing tobacco use about a pack a day. She has been smoking for 40 years. She denies any alcohol use or illicit drug use. Family history and occupational history are not remarkable. 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 REVIEW OF SYSTEMS: CONSTITUTIONAL: Negative. NEUROLOGIC: Negative. HEENT: Negative. CARDIOVASCULAR: Negative. PULMONARY: Shortness of breath, chest tightness, wheezing, cough, chest congestion and phlegm production. GI: Negative. : Negative. RHEUMATOLOGIC: Negative. IMMUNOLOGIC: Negative. ENDOCRINOLOGIC: Negative. DERMATOLOGIC: Negative. Current vital signs are reviewed. Temperature 97.6, heart rate 84, respiratory rate 20, blood pressure 132/74 mean 93, 2 L saturation 96%. Appears in no acute distress. HEENT: Examination is grossly unremarkable. Mucous membranes are moist. She has got nasal O2 in place. NECK: Supple. Full range of motion. No adenopathy. Neck veins are flat. CARDIOVASCULAR: Examination reveals regular rhythm and rate. S1, S2 normal. There was no S3, S4, or murmur. LUNGS: Reveal coarse expiratory rhonchi. Breath sounds are diminished. There is prolongation on forced maneuver. She wheezes and coughs on forced maneuver. She is bronchospastic. ABDOMEN: Soft. Bowel sounds are heard. EXTREMITIES: Intact. No cyanosis, clubbing, or edema. SKIN: Without rash. NEUROLOGIC: Examination is brief but nonfocal. Current chest x-ray shows changes of only COPD. I do not see any acute abnormalities. Microbiologic studies are negative. LABS: Reviewed. White count 6.9, hemoglobin 15.4, hematocrit 46.8, platelet count normal. Sodium, potassium, chloride, CO2 all normal. Anion gap is normal. BUN and creatinine were normal. Influenza A and B studies were negative. TSH normal. Troponin was negative. N terminal proBNP was normal. Medications are reviewed. She is on Pepcid, subcu heparin, insulin, DuoNeb, Solu- Medrol, nicotine patch, and a basic IV. ASSESSMENT: 1. Chronic obstructive pulmonary disease exacerbation complicated by purulent tracheobronchitis. 2. Ongoing tobacco use with nicotine addiction. PLAN: The patient should follow up with one of us in the Pulmonary Clinic for proper staging of her COPD. Again, we did savings counselor her about the importance of smoking cessation. She should be discharged home on her home medications which include Ventolin and Trelegy. One might consider getting her nebulizer machine as well. In addition, she should go home with a short course of antibiotics and prednisone with a burst and taper beginning with 40 mg for 4 days, 30 for 4 days, 20 for 4 days, 10 for 4 days and stop. Additional recommendations and suggestions are forthcoming. MMODL / IJN: [id number] /
--- NOTE | 2018-07-21 17:03 | P.PN ---
Subjective This is a pleasant 52 years old female with past medical history of pneumonia, bronchitis,. She is a patient of Dr. Mobley . Patient states that her has the flu/comment called for about 2 weeks, and about 5 days ago she started having her respiratory symptoms mainly of shortness of breath. However patient denies chest pain or coughing. She first treated herself with axax-ecb-idjgsgn stuff and then went to see her PCP who prescribed her steroids and antibiotics. With no improvement she gets one extra shot of steroids and then came to emergency room neck a for worsening dyspnea. Patient denies change in urine or bowel habits. However she had generalized weakness. Also she had generalized myalgia and arthralgia earlier during the week which is resolved now. Patient denies history of COPD. However she says that she had asthma about 10 years ago. She is currently smoking about 10 cigarettes per day. No alcohol or illicit tracts On admission patient is afebrile, rest of Vitas looks stable, she is saturating 94% on 2 L. CBC and BMP were unremarkable. Liver enzymes not elevated. Troponin is negative. Chest x-ray showing no acute pulmonary process. EKG: Normal sinus rhythm at 82 07/21/2018 Patient today feels better, however she needed oxygen therapy which make her upset, and talked to the patient and she agrees for home oxygen evaluation. Patient has been evaluated by pulmonary team and they think it is new onset COPD diagnoses. Patient informed. Patient instructed to follow up with pulmonary up on discharge as pulmonary team recommended. Patient continue on steroids. Patient hemodynamically stable pre-acute pulmonary team cleared the patient for discharge today, however the patient wants to continue steroids therapy parenterally for 1 more day as she still feels a dyspneic. Objective - Vital Signs Vital signs: Vital Signs Temp 97.6 F 07/21/18 12:38 Pulse 100 07/21/18 16:12 Resp 20 07/21/18 16:11 BP 132/74 07/21/18 12:38 Pulse Ox 92 L 07/21/18 16:11 Intake & Output 07/20/18 07/21/18 07/21/18 18:59 06:59 18:59 Intake Total 720 920 Balance 720 920 Weight 57.606 kg Intake: Oral 720 920 Other: Voiding Method Toilet Toilet Toilet # Voids 1 3 2 - Exam GENERAL: The patient is alert and oriented x3, not in any acute distress. Well developed, well nourished. HEENT: Pupils are round and equally reacting to light. EOMI. No scleral icterus. No conjunctival pallor. Normocephalic, atraumatic. No pharyngeal erythema. No thyromegaly. CARDIOVASCULAR: S1 and S2 present. No murmurs, rubs, or gallops. PULMONARY: Chest is clear to auscultation, no wheezing or crackles. ABDOMEN: Soft, nontender, nondistended, normoactive bowel sounds. No palpable organomegaly. MUSCULOSKELETAL: No joint swelling or deformity. EXTREMITIES: No cyanosis, clubbing, or pedal edema. NEUROLOGICAL: Gross neurological examination did not reveal any focal deficits. SKIN: No rashes. - Labs CBC & Chem 7: 07/20/18 07:55 07/20/18 07:55 Labs: Abnormal Lab Results - Last 24 Hours (Table) 07/20/18 07/20/18 07/21/18 Range/Units 17:02 20:36 07:02 POC Glucose (mg/dL) 184 H 183 H 120 H (75-99) mg/dL 07/21/18 Range/Units 11:41 POC Glucose (mg/dL) 139 H (75-99) mg/dL Assessment and Plan Assessment: Acute COPD exacerbation Acute hypoxic respiratory failure secondary to above Nicotine dependence Remote history of asthma Plan: This is a pleasant 52 years old female who presents with dyspnea. Chest x-ray was negative. Negative influenza test. Continue with present treatment and oxygen therapy as needed. pulmonary consult. Patient probably will need oxygen upon discharge. Pulmonary evaluation recommended patient follow-up in the office for pulmonary function test. Continue with steroid treatment and breathing treatment. Labs and medication were reviewed.. Continue same treatment. Continue with symptomatic treatment. Resume home medication. Monitor lytes and vitals. DVT and GI prophylaxis. Further recommendations of the clinical course of the patient DVT prophylaxis: Subcutaneous heparin GI Prophylaxis: Pepcid
[2018-07-21 17:09] LABS: Glucose,Whole Blood 142 mg/dL (75-99)
[2018-07-21] MEDS: ACETAMINOPHEN TAB 325 MG TAB PO PRN (17:37)
[2018-07-21 20:52] LABS: Glucose,Whole Blood 136 mg/dL (75-99)
[2018-07-22] MEDS: methylPREDNISolone SOD SUCCI 125 MG/2 ML VIAL IV SCH ×5 (00:08→23:50)
[2018-07-22 07:13] LABS: Glucose,Whole Blood 114 mg/dL (75-99)
[2018-07-22] MEDS: INSULIN ASPART (NovoLOG) 100 UNIT/ML VIAL SQ SCH ×4 (07:46→20:51)
[2018-07-22] MEDS: IPRATROPIUM-ALBUTEROL 3 ML NEB INHALATION PRN ×4 (07:57→19:23)
[2018-07-22] MEDS: NICOTINE 21MG/24HR PATCH TRANSDERM SCH (07:58)
[2018-07-22] MEDS: FAMOTIDINE 20 MG TAB PO SCH ×2 (07:58→19:38)
[2018-07-22] MEDS: HEPARIN SODIUM,PORCINE 5,000 UNIT/ML 1 ML VIAL SQ SCH ×2 (07:59→19:37)
--- NOTE | 2018-07-22 12:16 | P.PN ---
Subjective Progress Note Date: 07/22/18 Principal diagnosis: Acute exacerbation of chronic obstructive pulmonary disease The patient is seen today the 2018 in follow-up on the regular medical floor. She is awake and alert in no acute distress. She is improved today as compared to yesterday. Nearly back to her baseline. Still somewhat bronchospastic and wheezing but able to have a conversation. She's been up and about without any acute distress. She is maintaining O2 saturations in the 90s on room air. She's been afebrile. Hemodynamically stable. She's been initiated on DuoNeb inhalations, IV Solu-Medrol, NicoDerm patch. Objective - Vital Signs Vital signs: Vital Signs Temp 97.7 F 07/22/18 05:00 Pulse 96 07/22/18 12:00 Resp 16 07/22/18 08:00 BP 144/71 07/22/18 05:00 Pulse Ox 91 L 07/22/18 07:57 Intake & Output 07/21/18 07/22/18 07/22/18 18:59 06:59 18:59 Intake Total 1400 1070 Balance 1400 1070 Intake: Oral 1400 1070 Other: Voiding Method Toilet Toilet Toilet # Voids 2 2 - Exam GENERAL EXAM: Alert, active, comfortable in no apparent distress. On room air. HEAD: Normocephalic. EYES: Normal reaction of pupils, equal size. NOSE: Clear with pink turbinates. THROAT: No erythema or exudates. NECK: No masses, no JVD. CHEST: No chest wall deformity. LUNGS: Equal air entry with faint end expiratory wheeze, diminished. CVS: S1 and S2 normal with no audible murmur, regular rhythm. ABDOMEN: No hepatosplenomegaly, normal bowel sounds, no guarding or rigidity. SPINE: No scoliosis or deformity SKIN: No rashes CENTRAL NERVOUS SYSTEM: No focal deficits, tone is normal in all 4 extremities. EXTREMITIES: There is no peripheral edema. No clubbing, no cyanosis. Peripheral pulses are intact. - Labs CBC & Chem 7: 07/20/18 07:55 07/20/18 07:55 Labs: Abnormal Lab Results - Last 24 Hours (Table) 07/21/18 07/21/18 07/22/18 Range/Units 17:08 20:51 07:12 POC Glucose (mg/dL) 142 H 136 H 114 H (75-99) mg/dL Assessment and Plan Assessment: Impression: #1 Acute exacerbation of chronic obstructive pulmonary disease. #2 Acute hypoxemic respiratory failure secondary to above. #3 Chronic and ongoing tobacco dependence. Plan: The patient was seen and evaluated by Dr. Bonilla. She is cleared for discharge from the pulmonary standpoint. She is again educated regarding the importance of complete smoking cessation. She will continue with her Trelegy and Ventolin inhalers. Complete prednisone burst and taper starting at 40 mg for 4 days. Follow-up in our office in 1-2 weeks' time. We'll perform full pulmonary function testing to evaluate the severity of her COPD and make further recommendations regarding maintenance medications. She is encouraged to call sooner with any recurrence of symptoms or other questions or concerns. I, the cosigning physician, performed a history & physical examination of the patient. Lungs sounds with faint end expiratory wheeze. Maintaining good O2 saturations in the 90s on room air. I discussed the assessment and plan of care with my nurse practitioner, Paula Mcdonough. I attest to the above note as dictated by her.
[2018-07-22] MEDS: ACETAMINOPHEN TAB 325 MG TAB PO PRN (13:27)
[2018-07-22] MEDS: DOXYCYCLINE 100 MG CAP PO SCH ×2 (15:33→19:38)
--- NOTE | 2018-07-22 17:36 | P.DS ---
Providers Date of admission: 07/20/18 09:27 Attending physician: Chela Sorensen Consults: 07/20/18 11:32 Consult Physician Urgent Consulting Provider: Earnest Bonilla Consult Reason/Comments: dyspnea Do you want consulting provider notified?: Yes Primary care physician: Henrique Escalera Hospital Course: Diagnoses: Acute COPD exacerbation Acute hypoxic respiratory failure secondary to above Nicotine dependence Remote history of asthma Hospital course: This is a pleasant 52 years old female who presents with new diagnosis of COPD. Patient was hypoxic with respiratory symptoms. She was treated with steroids, antibiotics, breathing treatments and oxygen. Patient also has been evaluated by glass frame fitter who adjusted her treatment and guided the therapy. Patient showed interval improvement and on the day of discharge she was significantly improved regarding her dyspnea and other symptoms and she felt that she can be discharged. Actually patient has been cleared for discharge from yesterday by pulmonary team however patient felt 1 more day of IV steroids and today she feels ready to go home. Yesterday she was hypoxic at rest, compared to today she got hypoxic only with exertion and her oxygen went down to 87-88%. Therapy was provided for the patient at home and patient was consult regarding this and she agreed well with the plan. Also patient was counseled extensively on several times for quit smoking. However she did not want the nicotine patch she is going to call her PCP Dr. Forbes and get Wellbutrin or Chantix from him. On the day of discharge patient had no chest pain, no dizziness, no change in urine or bowel habits. No abdominal pain or nausea vomiting. She was able to ambulate. Patient was cleared for discharge by pulmonary team Patient problems and management plan were discussed with her in details and she verbalized understanding and acceptance Patient was found stable and can be discharged home however she needs follow-up as an outpatient Gen: patient is a AAOx3, no distress CVS: S1-S2, RRR, no murmur Lungs: B/L CTA, bilateral scattered wheezing, improvement Abdomen: soft, no distention, no tenderness, positive bowel sounds Extremity: no leg edema or induration Time spent more than 35 minutes Patient Condition at Discharge: Stable Plan - Discharge Summary Discharge Rx Participant: No New Discharge Prescriptions: New Famotidine [Pepcid] 20 mg PO Q12HR #60 tab predniSONE 10 mg PO DIRECTED #40 tab Doxycycline [Vibramycin] 100 mg PO BID #9 cap Continue Albuterol Inhaler [Ventolin Hfa Inhaler] 2 puff INHALATION RT-QID Fluticasone/Umeclidin/Vilanter [Trelegy Ellipta 100-62.5-25] 1 puff INHALATION RT-DAILY #1 blst.w.dev Discontinued methylPREDNISolone Dose Pack [Medrol Dose Pack] See Taper PO DIRECTED Levofloxacin [Levaquin] 500 mg PO DAILY Discharge Medication List Albuterol Inhaler [Ventolin Hfa Inhaler] 2 puff INHALATION RT-QID 04/03/18 [History] Doxycycline [Vibramycin] 100 mg PO BID #9 cap 07/22/18 [Rx] Famotidine [Pepcid] 20 mg PO Q12HR #60 tab 07/22/18 [Rx] Fluticasone/Umeclidin/Vilanter [Trelegy Ellipta 100-62.5-25] 1 puff INHALATION RT-DAILY #1 blst.w.dev 07/22/18 [Rx] predniSONE 10 mg PO DIRECTED #40 tab 07/22/18 [Rx] Follow up Appointment(s)/Referral(s): Jw Duenas MD [Primary Care Provider] - 07/24/18 2:50 pm [facility] [NON-STAFF] - As Needed (oxygen) Earnest Bonilla DO [Doctor of Osteopathic Medicine] - 08/25/18 8:30 am Patient Instructions/Handouts: Famotidine (By mouth), Doxycycline (By mouth), Prednisone (By mouth), Fluticasone (Into the nose), COPD (Chronic Obstructive Pulmonary Disease) (DC) Activity/Diet/Wound Care/Special Instructions: regular diet activity is limited till you see your doctor Discharge Disposition: HOME SELF-CARE
[2018-07-22 19:36] VITALS: RESP 16
[2018-07-22 20:39] LABS: Glucose,Whole Blood 141 mg/dL (75-99)
[2018-07-23] MEDS: methylPREDNISolone SOD SUCCI 125 MG/2 ML VIAL IV SCH (04:57)
[2018-07-23 05:37] VITALS: BP 139/85; TEMP 97.9
[2018-07-23] MEDS: IPRATROPIUM-ALBUTEROL 3 ML NEB INHALATION PRN (06:55)
[2018-07-23 07:02] LABS: Glucose,Whole Blood 112 mg/dL (75-99)
[2018-07-23] MEDS: FAMOTIDINE 20 MG TAB PO SCH (08:02)
[2018-07-23] MEDS: NICOTINE 21MG/24HR PATCH TRANSDERM SCH (08:02)
[2018-07-23] MEDS: DOXYCYCLINE 100 MG CAP PO SCH (08:02)
[2018-07-23] MEDS: INSULIN ASPART (NovoLOG) 100 UNIT/ML VIAL SQ SCH (08:03)
[2018-07-23] MEDS: HEPARIN SODIUM,PORCINE 5,000 UNIT/ML 1 ML VIAL SQ SCH (08:06)
[2018-07-23 08:13] VITALS: PULSE 95
--- NOTE | 2018-07-23 08:18 | P.DS ---
Providers Date of admission: 07/20/18 09:27 Attending physician: Chela Sorensen Consults: 07/20/18 11:32 Consult Physician Urgent Consulting Provider: Earnest Bonilla Reason/Comments: dyspnea Do you want consulting provider notified?: Yes Primary care physician: Henrique Escalera [facility] Course: Diagnoses: Acute COPD exacerbation Acute hypoxic respiratory failure secondary to above Nicotine dependence Remote history of asthma Hospital course: This is a pleasant 52 years old female who presents with new diagnosis of COPD. Patient was hypoxic with respiratory symptoms. She was treated with steroids, antibiotics, breathing treatments and oxygen. Patient also has been evaluated by life insurance sales who adjusted her treatment and guided the therapy. Patient showed interval improvement and on the day of discharge she was significantly improved regarding her dyspnea and other symptoms and she felt that she can be discharged. Actually patient has been cleared for discharge from yesterday by pulmonary team however patient felt 1 more day of IV steroids and today she feels ready to go home. Yesterday she was hypoxic at rest, compared to today she got hypoxic only with exertion and her oxygen went down to 87-88%. Therapy was provided for the patient at home and patient was consult regarding this and she agreed well with the plan. Also patient was counseled extensively on several times for quit smoking. However she did not want the nicotine patch she is going to call her PCP Dr. Forbes and get Wellbutrin or Chantix from him. On the day of discharge patient had no chest pain, no dizziness, no change in urine or bowel habits. No abdominal pain or nausea vomiting. She was able to ambulate. Patient was cleared for discharge by pulmonary team Patient problems and management plan were discussed with her in details and she verbalized understanding and acceptance Patient was found stable and can be discharged home however she needs follow-up as an outpatient N.B. patient is supposed to be discharged on 07/22/2018, however her oxygen was not delivered total 07/23/2018. On the morning of 07/23/2018 patient's feels even better. Her breathing is improvement. No chest pain, dyspnea is minimum. There is minimum scattered wheezing on both sides. No new complaints. No chest pain or change in urine or bowel habits. No abdominal pain or nausea vomiting. Vitals are stable. And we will continue with the same discharge plans as patient might be going home today Gen: patient is a AAOx3, no distress CVS: S1-S2, RRR, no murmur Lungs: B/L CTA, bilateral scattered wheezing, improvement Abdomen: soft, no distention, no tenderness, positive bowel sounds Extremity: no leg edema or induration Time spent more than 35 minutes Patient Condition at Discharge: Stable Plan - Discharge Summary Discharge Rx Participant: No New Discharge Prescriptions: New Famotidine [Pepcid] 20 mg PO Q12HR #60 tab predniSONE 10 mg PO DIRECTED #40 tab Doxycycline [Vibramycin] 100 mg PO BID #9 cap Continue Albuterol Inhaler [Ventolin Hfa Inhaler] 2 puff INHALATION RT-QID Fluticasone/Umeclidin/Vilanter [Trelegy Ellipta 100-62.5-25] 1 puff INHALATION RT-DAILY #1 blst.w.dev Discontinued methylPREDNISolone Dose Pack [Medrol Dose Pack] See Taper PO DIRECTED Levofloxacin [Levaquin] 500 mg PO DAILY Discharge Medication List Albuterol Inhaler [Ventolin Hfa Inhaler] 2 puff INHALATION RT-QID 04/03/18 [History] Doxycycline [Vibramycin] 100 mg PO BID #9 cap 07/22/18 [Rx] Famotidine [Pepcid] 20 mg PO Q12HR #60 tab 07/22/18 [Rx] Fluticasone/Umeclidin/Vilanter [Trelegy Ellipta 100-62.5-25] 1 puff INHALATION RT-DAILY #1 blst.w.dev 07/22/18 [Rx] predniSONE 10 mg PO DIRECTED #40 tab 07/22/18 [Rx] Follow up Appointment(s)/Referral(s): Jw Duenas MD [Primary Care Provider] - 07/24/18 2:50 pm [facility] [NON-STAFF] - As Needed (oxygen) Earnest Bonilla DO [Doctor of Osteopathic Medicine] - 08/25/18 8:30 am Patient Instructions/Handouts: Famotidine (By mouth), Doxycycline (By mouth), Prednisone (By mouth), Fluticasone (Into the nose), COPD (Chronic Obstructive Pulmonary Disease) (DC) Activity/Diet/Wound Care/Special Instructions: regular diet activity is limited till you see your doctor no smoking with home 02 Discharge Disposition: HOME SELF-CARE
== END 2018-07-23 08:37 | disposition home or self-care (01) ==
LOC: EC 07:27 → 3NMEDONC 09:27
PROVIDERS: ADMIT Hospitalist; ATTEND Hospitalist
DX: J44.1 Chronic obstructive pulmonary disease with (acute) exacerbation (principal); J96.01 Acute respiratory failure with hypoxia; F17.210 Nicotine dependence, cigarettes, uncomplicated; Z87.01 Personal history of pneumonia (recurrent); Z87.440 Personal history of urinary (tract) infections; Z90.49 Acquired absence of other specified parts of digestive tract; Z79.899 Other long term (current) drug therapy; Z88.2 Allergy status to sulfonamides; Z88.1 Allergy status to other antibiotic agents; Z82.3 Family history of stroke
CPT/HCPCS: 96376 ×4; 96372 ×3; 96361; 96374; 99285; 36415; 94640 ×7; 94760 ×2; 93005; 97161; 83880; 80053; 84443; 83735; 84484; 85025; 87502; 71046; G0378 ×4; S4990 ×4; J1644 ×3; J2930 ×4

== ENCOUNTER → 2019-04-03 | Outpatient (CLI) | payer BC ==
[2019-04-03 16:01] VITALS: BP 137/77; PULSE 69; RESP 16; TEMP 98.4
--- NOTE | 2019-04-03 17:21 | P.HPOB ---
History of Present Illness H&P Date: 04/03/19 Chief Complaint: The patient is here for her routine gynecologic exam and ma mmogram. This is a 53-year-old with an LMP of 2009. The patient is complaining of slight vaginal odor for several months. She denies any significant discharge but has had occasional slight pruritus. She denies any postmenopausal bleeding. She is otherwise without gynecologic complaints. She is and has no concerns for sexual transmitted infections. Review of Systems She has gained about 13 pounds over the past 2 years. She denies respiratory, cardiac, or GI problems. Past Medical History Past Medical History: Asthma, Cancer, Pneumonia Additional Past Medical History / Comment(s): Right breast lobular CIS in 2005(no adjuvant Tx). Seasonal allergies, sinus problems. PAST EDUCATION AND TRAINING MANAGER HISTORY: She has no history of STDs. History of Any Multi-Drug Resistant Organisms: None Reported Past Surgical History: Breast Surgery, Cholecystectomy Additional Past Surgical History / Comment(s): L breast benign bx. Right breast lumpectomy 2005. Past Anesthesia/Blood Transfusion Reactions: No Reported Reaction, Motion Sickness Past Psychological History: No Psychological Hx Reported Additional Psychological History / Comment(s): Pt resides with her spouse. She is independent. She works in [employer] Smoking Status: Former smoker Past Alcohol Use History: Occasional (2 per month) Additional Past Alcohol Use History / Comment(s): Pt started smoking in 1979 and was a half a ppd smoker. She states she quit smoking in July 2018. 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 - Past Family History Father Family Medical History: CVA/TIA, Diabetes Mellitus Additional Family Medical History / Comment(s): Father for a CVA at the age of 46yrs. Mother Family Medical History: Congestive Heart Failure (CHF), COPD, Myocardial Infarction (DE) Additional Family Medical History / Comment(s): Mother had heart "issues". She from COPD at the age of 72 yrs. She was a smoker. Maternal aunt had breast cancer. Brother(s) Family Medical History: Diabetes Mellitus Medications and Allergies Home Medications Medication Instructions Recorded Confirmed Type Albuterol Inhaler [Ventolin Hfa 2 puff INHALATION RT-QID 04/03/18 04/03/19 History Inhaler] Fluticasone/Umeclidin/Vilanter 1 puff INHALATION RT-DAILY #1 07/22/18 04/03/19 Rx [Trelegy Ellipta 100-62.5-25] blst.w.dev predniSONE 10 mg PO DIRECTED #40 tab 07/22/18 04/03/19 Rx Allergies Allergy/AdvReac Type Severity Reaction Status Date / Time cephalexin [From Keflex] Allergy Anaphylaxis Verified 04/03/19 16:01 Sulfa (Sulfonamide Allergy Rash/Hives Verified 04/03/19 16:01 Antibiotics) Exam Vital Signs Temp Pulse Resp BP Pulse Ox 04/03/19 15:59 98.4 F 69 16 137/77 96 Intake and Output 04/03/19 04/03/19 04/03/19 06:59 14:59 22:59 Other: Weight 67.585 kg Height 5 feet 3 inches, weight 149 pounds, BMI 26.4. This is a well-developed well-nourished white female who is alert and oriented times 3 in no acute distress. HEENT: Within normal limits. NECK: Supple without mass or thyromegaly. CHEST AND LUNGS: Clear to auscultation. HEART: Regular rate and rhythm. BREASTS: Are without mass or discharge. The right breast has a large dimpled area from approximately the 4:00 to the 7 o'clock position consistent with previous lumpectomy. AXILLARY EXAM: Negative for adenopathy. BACK: Negative for CVA tenderness. ABDOMEN: Soft, nontender, without palpable masses. PELVIC EXAM: Normal external genitalia with mild atrophy. Cervix and vagina appear normal with mild atrophy. There is a minimal amount of thin grayish discharge without significant odor. There is no evidence of prolapse. The uterus is midposition, nongravid size and nontender. There are no palpable adnexal masses or tenderness. RECTAL EXAM: Rectovaginal exam is negative for mass or tenderness and is negative for occult blood. EXTREMITIES: Nontender. IMPRESSION: 1. 53-year-old menopausal female with complaint of chronic vaginal odor with minimal thin grayish discharge in the vagina, and otherwise, no significant physical findings. Differential diagnosis will include vaginitis, urine odor, and physiologic discharge. Different types of vaginitis would include bacterial vaginosis, Estrella, or, less likely, Trichomonas. 2. History of right breast lobular CIS with no evidence of recurrence. PLAN: 1. Pap smear was performed. 2. Self breast awareness was discussed with the patient. 3. Diagnostic mammogram will be done today. 4. Affirm testing from the vagina will be done to check for BV, Trichomonas and Estrella infections. 5. The patient has declined colonoscopy and instead has done Cologard testing within the past 1-2 years. 6.Osteoporosis prevention was discussed. I have stressed the importance of adequate calcium, vitamin D and regular exercise. Recommended amounts of calcium and vitamin D were also discussed. 7. She was advised to return in one year for her annual well woman exam.
[2019-04-04 03:59] LABS: Gardnerella Positive (Negative); Source Vagina; Trichomonas Negative (Negative)
--- NOTE | 2019-04-04 14:09 | P.PN ---
Progress Note - Text Progress Note Date: 04/04/19 OUTPATIENT FOLLOW-UP NOTE TEST(S)/RESULTS: Test results from 04/03/2019 showed positive Gardnerella from Affirm testing from the vagina. It was negative for Trichomonas and Estrella. METHOD OF NOTIFICATION: Patient was notified by phone. PATIENT COMMENTS: DIAGNOSIS: Bacterial vaginosis DISCUSSION: Patient had been complaining of vaginal odor which had been going on for several months. PLAN: Metronidazole 500 mg by mouth twice a day 7 days. She was also advised to avoid getting things into the vagina such as soap, saliva, or chlorinated water. She also states she will try to eat more yogurt which may encourage healthy year vaginal naina. The electronic prescription will be sent to [facility] pharmacy.
--- NOTE | 2019-04-04 14:45 | MM ---
Reason for exam: additional evaluation requested from prior study. Last mammogram was performed 2 years and 3 months ago. History: Patient is postmenopausal, has history of breast cancer at age 39, and has history of high-risk lesion on a previous biopsy at age 39. Family history of premenopausal breast cancer in maternal aunt at age 50. Benign US left CoreBiopsy of both breasts, March 24, 2007. High risk right mammotome panel of the right breast, May 03, 2005. Took hormonal contraceptives for 3 years beginning at age 17. Physical Findings: Dr. Shankar did breast exam. MG Diagnostic Mammo w CAD ORAICO Bilateral CC and MLO view(s) were taken. Prior study comparison: December 21, 2016, bilateral MG diagnostic mammo w CAD ORACIO. July 09, 2014, bilateral MG diagnostic mammo w CAD ORACIO. The breast tissue is heterogeneously dense. This may lower the sensitivity of mammography. Focal asymmetry left upper outer quadrant, no change. No significant new findings when compared with previous films. These results were verbally communicated with the patient and result sheet given to the patient on 04/03/19. ASSESSMENT: Benign, BI-RAD 2 RECOMMENDATION: Routine screening mammogram of both breasts in 1 year.
== END | disposition home or self-care (01) ==
LOC: WWCWWP 15:45
PROVIDERS: ATTEND Obstetrics & Gynecology
DX: Z08 Encounter for follow-up examination after completed treatment for malignant neoplasm (principal); Z85.3 Personal history of malignant neoplasm of breast; N89.8 Other specified noninflammatory disorders of vagina
CPT/HCPCS: 77066; 87480; 87510; 87660

== ENCOUNTER → 2020-06-04 | Outpatient (CLI) | payer BC ==
--- NOTE | 2020-06-04 15:36 | XR ---
EXAMINATION TYPE: XR foot limited bilateral DATE OF EXAM: 06/04/2020 COMPARISON: NONE HISTORY: 54-year-old female bilateral foot pain. Reports bumps along the arches of both feet. TECHNIQUE: 2 views each side FINDINGS: Tiny plantar heel spurs on both sides. No acute fracture, subluxation, dislocation. IMPRESSION: Tiny plantar heel spurs on both sides. No acute osseous abnormality seen. If concern for plantar fibr omatosis, consider podiatry referral.
== END | disposition home or self-care (01) ==
LOC: RADXRMAIN 14:50
PROVIDERS: ATTEND Internal Medicine
DX: M77.31 Calcaneal spur, right foot (principal); M77.32 Calcaneal spur, left foot; M79.672 Pain in left foot